=== PATIENT | male | born 1985 | race Caucasian/White ===

== ENCOUNTER 2021-03-30 14:47 | Emergency (ER) | payer BC ==
[~2021-03-30 14:47] MED LIST: DOSS PO; IBU600 MG PO; PERCOCET 7.5-31 EACH PO; ZOFRAN4 MG PO
[2021-03-30 17:22] LABS: HEMOGLOBIN 16.3 gm/dl (14.0-17.5); RED BLOOD COUNT 5.3 M/UL (4.20-5.50); WHITE BLOOD COUNT 9.4 K/UL (4.5-11.0)
[2021-03-30 17:41] LABS: BUN/CREATININE RATIO 12 (0-10)
[2021-03-30] MEDS ORDERED: PANTOPRAZOLE SO20 MG PO (20:37)
== END 2021-03-30 21:30 | disposition home or self-care (01) ==
LOC: ER1 14:47
PROVIDERS: Emergency Medicine
DX: R10.32 Left lower quadrant pain (principal); R10.13 Epigastric pain; G89.29 Other chronic pain; Z90.89 Acquired absence of other organs
CPT/HCPCS: 80053; 81001; 83690; 85025; 99284